=== PATIENT | female | born 1935 | race Caucasian/White ===

== ENCOUNTER 2017-04-14 06:47 | Day surgery (SDC) | payer MEDICARE ==
[~2017-04-14] VITALS: Ht 157.5 cm; Wt 70.9 kg
[~2017-04-14 06:47] MED LIST: ATORVASTATIN CA20 MG PO; HYDR1TAB94 PO; Naproxen500 MG PO; Synthroid/Lev0.05 MG PO; XARELTO15 MG PO
[2017-04-14] MEDS ORDERED: CVS CALCIUM 501 EAC2 PO (07:46)
[2017-04-14] MEDS ORDERED: Hair, Skin & N1 EACH PO (07:46)
== END 2017-04-14 09:25 | disposition home or self-care (01) ==
LOC: ORSCSDS 06:47
PROVIDERS: Ophthalmology
PROC: 08RJ3JZ Replacement of Right Lens with Synthetic Substitute, Percutaneous Approach (ICD-10-PCS; principal; 2017-04-14 08:30)
DX: H25.11 Age-related nuclear cataract, right eye (principal); E03.9 Hypothyroidism, unspecified; Z86.718 Personal history of other venous thrombosis and embolism; Z79.01 Long term (current) use of anticoagulants; Z79.899 Other long term (current) drug therapy
CPT/HCPCS: J2250; J3010; J3301; J7040; V2632

== ENCOUNTER → 2022-04-15 | Outpatient (CLI) | payer MEDICARE, OTHER ==
[~2022-04-15] MED LIST changes: +CVS CALCIUM 501 EAC2 PO; +Hair, Skin & N1 EACH PO
== END | disposition home or self-care (01) ==
LOC: LAB 12:23 → LAB SHORT 12:23
DX: D48.5 Neoplasm of uncertain behavior of skin (principal)
CPT/HCPCS: 88304

== ENCOUNTER → 2023-04-20 | Outpatient (CLI) | payer OTHER | END | disposition home or self-care (01) | LOC: LAB SHORT 08:23 → PLD 08:23 | DX: L72.0 Epidermal cyst (principal) | CPT/HCPCS: 88304; 88305 ==